=== PATIENT | female | born 1955 | race Caucasian/White ===

== ENCOUNTER 2021-09-14 19:31 | Inpatient (IN) | payer MEDICARE, MEDICAID, SELFPAY ==
[2021-09-14 21:32] VITALS: BP 133/75; PULSE 65; RESP 16; TEMP 36.1; O2SAT 96
[2021-09-14 21:49] VITALS: BP 133/75; PULSE 65; RESP 16; TEMP 36.1; O2SAT 96
--- NOTE | 2021-09-14 22:01 | W.PM.HP.N ---
Date of service: 09/14/21 Time of Service: 22:01 Assessment and Plan Assessment and plan (1) Acute pancreatitis: Status: Acute Assessment and plan: CT imaging done at [facility] was a noncontrast CT which is insufficient to disprove acute pancreatitis or sequela. Needs an US of the abdomen and likely an MRCP (patient is claustrophobic and was very anxious about this tonight). Does not have a gallbladder. NPO except ice chips and water, aggressive IVF, encourage pulmonary toilet. Check CA 19-19, procalcitonin, CRP. Trend LFTs, lipase. (2) Acute kidney injury superimposed on chronic kidney disease: Status: Acute Assessment and plan: In setting of poor PO intake, acute pancreatitis, UTI, and a number of potentially nephrotoxic medications (amiloride, meloxicam, olmesartan). Hold nephrotoxic medications. Hydrate. Treat UTI. No evidence of obstructive uropathy on CT. Monitor bladder scans. (3) UTI (urinary tract infection): Status: Acute Assessment and plan: Present on admission. Continue empiric ceftriaxone; will follow up urine C&S results from . (4) Hyponatremia: Status: Acute Assessment and plan: Hold olmesartan. Hydrate IV. Recheck in am. (5) Hyperkalemia: Status: Acute Assessment and plan: Hold olmesartan and amiloride. Lokelma and IVF tonight. Recheck in am. (6) Metabolic acidosis: Status: Acute Assessment and plan: Due to DEANNE on CKD. Lactate normal. Monitor as we are attempting to correct DEANNE. (7) DVT prophylaxis: Status: Acute Assessment and plan: SC heparin in setting of DEANNE (8) Discharge planning issues: Status: Acute Assessment and plan: Full code History of Present Illness History of Present Illness Chief Complaint: Upper abdominal pain Narrative: Ms Holley is a 66 year old female with PMHx of non-diabetic gastroparesis, Hypertension, CKD with a baseline Cr of 1.8, hypothyroidism in the past, gout, GERD, anxiety/depression, who was evaluated at the [facility] Emergency room yesterday for midpepigastric pain radiating to her back x months as well as new B lower back pain x weeks. She was found to have an DEANNE with a creatinine of 3.4, an elevated lipase (reportedly 1800), had a UA positive for a UTI, and a CT of the abdomen/pelvis which was negative for any pancreatic pathology (gallbladder was surgically absent), any evidence of nephrolithiasis or obstructive uropathy. She left the ED yesterday before the workup could be completed, per the [facility] ED provider, but returned there today after being seen by the PCP. Today, she is found to be in DEANNE with Cr of 3.17 with sodium of 127, potassium of 5.3, bicarb of 15, anion gap of 13. Her lipase is 1978. Her UA remains positive for a UTI. She was initiated on empiric ceftriaxone. Hospitalist admission at [facility] was requested as there is insufficient staffing at [facility] today and tomorrow. The patient endorses chills, but no fevers, endorses MONDRAGON, denies leg swelling, chest pain, endorses PO intake, early satiety, unitentional 50 lb weight loss in 1 year, 15 lbs in the last 2-3 months, endorses nausea, denies vomiting, endorses constipation, with last BM being 6 days ago. BMs have been brownish and not bloody, formed. Endorses the sensation of tingling when urinating, but no dysuria, endorses frequency/urgency, denies incontinence. Review of Systems All systems reviewed & are unremarkable except as noted in HPI and below PFSH All Active Problems (Updated 09/14/21 @ 23:43 by Manda Jarvis MD) Discharge planning issues (Acute) DVT prophylaxis (Acute) Metabolic acidosis (Acute) Hyperkalemia (Acute) Hyponatremia (Acute) UTI (urinary tract infection) (Acute) Acute kidney injury superimposed on chronic kidney disease (Acute) Acute pancreatitis (Acute) Medical History (Updated 09/14/21 @ 23:43 by Manda Jarvis MD) Acquired hypothyroidism (12/26/15) Body mass index (BMI) of 40.1 to 44.9 in adult CKD (chronic kidney disease) Depression Extraction of tooth needed GERD (gastroesophageal reflux disease) Gout Hypertension Left knee pain Migraine Nausea & vomiting Normocytic anemia Normocytic anemia (07/04/17) results have been forwarded to her PCP. She is planning an office visit with her PCP in the near future. Obstructive sleep apnea on CPAP Overactive bladder Rectocele longstanding. 2015 fitted with donut pessary. Pt didn't tolerate it. Urge incontinence of urine 2013 briefly treated with Oxybutynin - didn't tolerate side effects. Surgical History (Updated 09/14/21 @ 23:41 by Manda Jarvis MD) Bilateral salpingectomy with oophorectomy for B9 indications. No HRT. Cholecystectomy S/P left knee arthroscopy S/P tonsillectomy Vaginal hysterectomy for AUB. Family History (Updated 09/14/21 @ 23:41 by Manda Jarvis MD) Mother Heart disease Stroke Essential hypertension Breast cancer Father Heart disease Essential hypertension Brother Diabetes Social History (Updated 09/14/21 @ 23:42 by Manda Jarvis MD) Smoking/Tobacco Use Status: Former Tobacco Use Quit Date: 04/01/89 Pack-years: 30 Tobacco: How many years used: 15 Smoking risk assessment performed?: Yes Alcohol Intake: current Alcohol Intake frequency: a few times a month Alcohol type: hard liquor Substance use type: marijuana Details: uses marijuana twice a year In current or past relationships, have you been: other Do you feel safe at home: Yes Additional Social history: not in a relationship Meds Allergies and Home Medications Allergies Allergy/AdvReac Type Severity Reaction Status Date / Time No Known Allergies Allergy Unverified 07/04/17 10:01 Home Medications Medication Instructions Recorded Confirmed Type aspirin 81 mg chewable tablet 81 mg PO DAILY 05/03/17 09/14/21 History pantoprazole 20 mg tablet,delayed 20 mg PO DAILY 05/03/17 09/14/21 History release (Protonix) allopurinol 100 mg tablet 100 mg PO 2XD 09/14/21 09/14/21 History amiloride 5 mg tablet 5 mg PO DAILY 09/14/21 09/14/21 History bupropion HCl 150 mg 24 hr tablet, 150 mg PO DAILY 09/14/21 09/14/21 History extended release (Wellbutrin XL) meloxicam 7.5 mg tablet 7.5 mg PO DAILY 09/14/21 09/14/21 History metoclopramide HCl 10 mg tablet 10 mg PO TID & HS 09/14/21 09/14/21 History metoprolol succinate 100 mg 100 mg PO DAILY 09/14/21 09/14/21 History tablet,extended release 24 hr olmesartan 40 mg tablet 40 mg PO DAILY 09/14/21 09/14/21 History solifenacin 5 mg tablet 5 mg PO DAILY 09/14/21 09/14/21 History topiramate 50 mg tablet 50 mg PO DAILY 09/14/21 09/14/21 History Exam Narrative Exam Narrative: General: Pleasant obese female who is A&Ox3 and appears relatively comfortable in bed, mildly anxious Neurological: A&Ox3, no focal deficits Psychiatric: mildly anxious Skin: Visible skin intact; tattoos dorsum R foot HEENT: Atraumatic, normocephalic, EOMI, dry MM, clear oropharynx, no submandibular or cervical lymphadenopathy, ? goiter, no JVD Cardiovascular: RRR, no m/r/g Lungs: CTAB Gastrointestinal: soft, nontender, nondistended Genitourinary: deferred Extremities: trace edema BLEs, +1 pedal pulse L foot, trace pedal pulse R foot, B feet warm, no clubbing/cyanosis Results Imaging Additional studies: EKG: SB, HR 58, inferolateral T wave inversions (old, per documentation of [facility]) CT abdomen/pelvis (renal stone protocol) 09/13/21: No renal, ureteral or bladder calculi. No hydronephrosis or hydroureter. Small hiatal hernia. Labs Labs: CBC w/ diff: WBC 8.4 H/H 11.1/32.8 Plts 184 Segs 68.5 Lymphs 22 CMP: Na 127, K 5.3 Chloride 99, Bicarb 15, BUN 87, Cr 3.17 (baseline is 1.8) Glucose 113 Anio gap 13 GFR 15 AST 22 ALT 25 T Bili 02. Alk phos 122 Lipase 1978 Covid negative UA Hazy, 1+ bili, negative for ketones, trace blood, negative for nitrite, 3+ leuc. esterase WBC 25-50 RBC 3-5 Squamous cells few, moderate bacteria, Last Vital Signs Temp 36.1 C L 09/14/21 21:49 Pulse 65 09/14/21 21:49 Resp 16 09/14/21 21:49 BP 133/75 09/14/21 21:49 Pulse Ox 96 09/14/21 21:49
[2021-09-14 22:43] LABS: Lactate 0.9 mmol/L (0.6-1.4)
[2021-09-14] MEDS: Normal Saline Flush 10 ML SYR IVP (22:56)
[2021-09-14] MEDS: Lactated Ringers 1,000 ML 1000 ML IV (22:56)
[2021-09-14] MEDS: Sodium Zirconium Cyclosilicate 10 GM PKT PO (23:01)
[2021-09-14 23:05] VITALS: BP 109/73; PULSE 63; RESP 16; TEMP 36; O2SAT 93
[2021-09-14] MEDS: Heparin 5,000 UNITS/ML VIAL 5000 UNITS SC (23:05)
[2021-09-14] MEDS: Metoclopramide 10 MG TAB PO (23:42)
[2021-09-15] VITALS (7 sets, daily range): BP systolic 92–141; BP diastolic 58–82; PULSE 63–78; RESP 16–22; TEMP 36.2–36.7; O2SAT 93–98
[2021-09-15] MEDS: Lactated Ringers 1,000 ML 200 ML IV ×3 (00:05→12:49)
[2021-09-15] MEDS: Metoclopramide 10 MG TAB PO ×4 (05:55→23:04)
[2021-09-15] MEDS: Sodium Zirconium Cyclosilicate 10 GM PKT PO ×3 (05:56→23:03)
[2021-09-15 06:42] LABS: Abs Immature Grans 0.01 10^3/uL (0.0-0.06); Absolute Basophil Count 0.03 10^3/uL (0.0-0.2); Absolute Eosinophil Count 0.25 10^3/uL (0.0-0.7); Absolute Lymphocyte Count 2.46 10^3/uL (1.2-3.4); Absolute Monocyte Count 0.45 10^3/uL (0.1-0.8); Absolute Neutrophil Count 3.31 10^3/uL (1.2-6.7); Basophils % 0.5; Eosinophils % 3.8; HCT 27.9 % (36.0-46.0); HGB 9.4 g/dL (11.2-15.7); Immature Grans % 0.2; Lymphocytes % 37.8; MCH 30.2 pg (27.0-33.0); MCHC 33.7 % (32.0-36.0); MCV 90 fL (80-95); MPV 11.8 fL (8.0-11.0); Monocytes % 6.9; Neutrophils % 50.8; Platelet Count 182 10^3/uL (130-400); RBC 3.11 10^6/uL (3.93-5.22); RDW 13.8 % (11.7-14.6); RDW-SD 45.3 fL; WBC 6.51 10^3/uL (4.4-10.8)
[2021-09-15 07:09] LABS: ALT 14 U/L (14-59); AST 17 U/L (15-37); Albumin 2.9 g/dL (3.4-5.0); Alkaline Phosphatase 98 U/L (46-116); Bilirubin, Direct 0.1 mg/dL (0.0-0.2); Bilirubin, Total 0.2 mg/dL (0.2-1.0); Total Protein 6.2 g/dL (6.4-8.2)
[2021-09-15 07:16] LABS: Procalcitonin < 0.1 ng/mL
[2021-09-15 07:17] LABS: BUN 67 mg/dL (7-18); C-Reactive Protein 0.44 mg/dL (0.0-0.3); CREATININE 2.4 mg/dL (0.55-1.02); Calcium 9.4 mg/dL (8.5-10.1); Chloride 110 mmol/L (98-107); Creatine Kinase 91 U/L (26-192); Estimated GFR 20.14 (mL/min/1.73m2); Glucose 88 mg/dL (74-106); Lipase 1174 U/L (73-393); Magnesium 1.2 mg/dL (1.8-2.4); Sodium 140 mmol/L (136-145)
--- NOTE | 2021-09-15 08:00 | DI.US_ITS ---
APPROVED REPORT EXAM: Comprehensive 2D, Doppler, and color-flow Echocardiogram Patient Location: In-Patient Room/Bed: 212 Patient Portal Concierge: Gerri Caraballo RDCS (AE) Indications: MONDRAGON, Other Information Study Quality: Adequate Conclusion Normal left ventricular wall thickness and chamber size. Estimated ejection fraction is 60 to 65%. Wall motion is normal Normal right ventricular size and systolic function Both atria are normal in size There is no structural or hemodynamically significant valvular disease Estimated right ventricular systolic pressure is 38 mmHg Wall motion Left Ventricle The left ventricle is normal size. The left ventricular systolic function is normal. The left ventric ular ejection fraction is within the normal range. There is normal left ventricular wall thickness. T here is normal LV segmental wall motion. There is no ventricular septal defect visualized. LVEF is 60 -65%. Right Ventricle The right ventricle is normal size. The right ventricular systolic function is normal. The RVSP is 37 .9_ mmHg. Atria The left atrium size is normal. The right atrium size is normal. The interatrial septum is intact wit h no evidence for an atrial septal defect. Aortic Valve The aortic valve is normal in structure. Aortic valve is trileaflet. There is no aortic valvular stella nosis. No aortic regurgitation is present. Mitral Valve The mitral valve is normal in structure. No evidence of mitral valve stenosis. Trace mitral regurgita tion. Tricuspid Valve The tricuspid valve is normal in structure. There is no tricuspid valve stenosis. Mild tricuspid regu rgitation. Pulmonic Valve The pulmonary valve is normal in structure. There is no pulmonic valvular stenosis. Trace pulmonic re gurgitation. Great Vessels The aortic root is normal in size. The ascending aorta is normal in size. Aortic arch is normal in ca liber. IVC is normal in size and collapses >50% with inspiration. Pericardium There is no pericardial effusion. 2D Dimensions IVSD d PLAX 0.85 cm F: 0.6-1.0 LV Vol A2C d MOD 82.0 mL LVPW d PLAX 0.87 cm F: 0.6 - 1.0 LV Vol A4C d MOD 75.5 mL LVID d PLAX 4.36 cm F: 3.8 - 5.2 LA vol/ BSA A2C s A-L 25.9 mL/m2 LVDs 3.05 cm F: 2.2 - 3.5 LA vol/ BSA A4C s A-L 22.3 mL/m2 Ao Root d 2.82 cm F: 2.7 - 3.3 LA Vol/ BSA Biplane s A-L 24.3 mL/m2 RA Area A4C 9.83 cm2 LA Area A4C s MOD 16.08 cm2 RA Vol/ BSA A4C s A-L 10.3 mL/m2 LA Area A2C s MOD 17.18 cm2 Ao Asc Diam d 3.23 cm F: 2.3 - 3.1 LV EF A4C MOD 58.1 % LV EF Teichholz 57.5 % LV EF A2C MOD 60.3 % LVEF (Yanez's) 58.83 % F: 54 - 74 LV EF Biplane MOD 58.8 % LV Volume 61.15 mL F: 46 - 106 SV 46.34 mL LV Volume Index 33.78 mL/m2 F: 29 - 61 SV Index 25.61 mL/m2 LV Vol Biplane MOD 78.8 mL FS 30.00 % M-Mode TAPSE 2.00 cm (M/F) >1.7 LV Diastology MV E' medial 0.111 (>0.07 m/s) E/A Ratio 0.8 LV E/e MED 6.20 (<14) MV E Vmax 0.69 (0.4-1.3 m/s) MV E' lateral 0.121 (>0.1 m/s) MV A Vmax 0.85 (0.4-1.3 m/s) LV E/e LAT 5.70 (<14) MV E/A Ratio 0.81 MV E/E' medial 6.22 MV E/E' lateral 5.71 Aortic Valve LVOT Area 2.87 cm2 AoV Area Vmax 2.24 cm2 LVOT Vmax 1.47 m/s AoV Area/ BSA (Vmax) 1.24 cm2/m2 LVOT Mean Bert. 1.12 m/s MARISELA Mean Bert. 2.37 cm2 LVOT Peak Grad 8.6 mmHg MARISELA Mean Bert. Index 1.31 cm2/m2 LVOT Mean Grad 5.3 mmHg LVOT VTI 0.338 m LVOT Diam s 1.90 cm AoV Vmax 1.88 m/s Velocity Ratio 0.78 AoV Mean Bert. 1.35 m/s AoV Peak Grad 14.1 mmHg LVOT SV 96.93 mL AoV Mean Grad 8.1 mmHg AoV VTI 0.398 m AoV Area VTI 2.43 cm2 AoV Area/ BSA (VTI) 1.34 cm/m2 Mitral Valve MV DT 319 (160-240 msec) MV PHT 93 msec MV Area PHT 2.38 cm2 MV VTI 0.258 m MV Area VTI 3.75 (4.0-6.0 cm2) Pulmonary Valve PV Vmax 1.24 (0.5-1.5 m/s) RVOT Peak Gr. 3.25 mmHg PV Peak Grad 6.2 mmHg RVOT Mean Gr. 1.90 mmHg PV Mean Grad 3.4 mmHg RVOT VTI 0.231 m PV VTI 0.247 m RVOT Vmax 0.90 m/s Tricuspid Valve TR Peak Grad 34.9 mmHg TR Vmax 2.96 m/s RA Pressure 3.00 mmHg RVSP (TR) 37.9 mmHg
--- NOTE | 2021-09-15 08:00 | DI.MRI_ITS ---
Exam(s) MR ABDOMEN WO EXAM: MR ABDOMEN WO CLINICAL HISTORY: pancreatitis. TECHNIQUE: Multiplanar multisequence MRI was performed. COMPARISON: CT CT RENAL COLIC from 09/13/2021 FINDINGS: MR examination of the abdomen was performed according to the usual protocol with additional MRCP [place]. Examination was somewhat limited by patient motion. Note is made of a hiatal hernia. No upper abdominal adenopathy seen. Visualized abdominal aorta is of normal diameter. Small incidental left renal cysts are noted. No other focal renal pathology. No hydronephrosis. Adrenals appear normal bilaterally. Spleen is unremarkable in appearance. Liver appears normal. Gallbladder has been surgically removed. No biliary dilatation. Pancreatitis shows normal signal and there is no evidence of pancreatic mass or inflammatory process. No peripancreatic fluid collection seen. IMPRESSION: Negative upper abdominal MRI. Prior cholecystectomy noted. DATA REPOSITORY:
--- NOTE | 2021-09-15 08:00 | DI.US_ITS ---
Exam(s) US ABDOMEN EXAM: US ABDOMEN INDICATION: pancreatitis COMPARISON: US US ECHOCARDIOGRAM from 09/15/2021 TECHNIQUE: Ultrasound abdomen performed using standard protocol FINDINGS: Abdominal ultrasound was performed according to the usual protocol. The liver is normal in size and shape. No focal hepatic lesion seen. Question mildly increased hepat ic echogenicity, this could represent hepatic steatosis. Prior cholecystectomy noted. No evidence biliary dilatation. Portal venous flow is hepatopetal. Pancreas appears intact as visualized. Spleen is unremarkable in appearance with no focal lesion. Kidneys are normal in size and shape. No renal mass, hydronephrosis, or nephrolithiasis. Abdominal aorta and IVC are of normal diameter. IMPRESSION: Negative abdominal ultrasound except for a possible hepatic steatosis. Post cholecystectomy.
--- NOTE | 2021-09-15 09:03 | INITIAL_ITS ---
- If Service Date Differs Date of service: 09/15/21 Time of Service: 09:03 Care Management Initial Assess REASON FOR HOSPITALIZATION:: Acute pancreatitis PAST MEDICAL HISTORY/PAST SURGICAL HISTORY:: All Active Problems (Updated 09/14/21 @ 23:43 by Manda Jarvis MD). Discharge planning issues (Acute). DVT prophylaxis (Acute). Metabolic acidosis (Acute). Hyperkalemia (Acute). Hyponatremia (Acute). UTI (urinary tract infection) (Acute). Acute kidney injury superimposed on chronic kidney disease (Acute). Acute pancreatitis (Acute). Medical History (Updated 09/14/21 @ 23:43 by Manda Jarvis MD). Acquired hypothyroidism (12/26/15). Body mass index (BMI) of 40.1 to 44.9 in adult. CKD (chronic kidney disease). Depression. Extraction of tooth needed. GERD (gastroesophageal reflux disease). Gout. Hypertension. Left knee pain. Migraine. Nausea & vomiting. Normocytic anemia. Normocytic anemia (07/04/17). results have been forwarded to her PCP. She is planning an office visit with her PCP in the near future. Obstructive sleep apnea on CPAP. Overactive bladder. Rectocele. longstanding. 2015 fitted with donut pessary. Pt didn't tolerate it. Urge incontinence of urine. 2013 briefly treated with Oxybutynin - didn't tolerate side effects. Surgical History (Updated 09/14/21 @ 23:41 by Manda Jarvis MD). Bilateral salpingectomy with oophorectomy. for B9 indications. No HRT. Cholecystectomy. S/P left knee arthroscopy. S/P tonsillectomy. Vaginal hysterectomy. for AUB. PREVIOUS FUNCTIONAL STATUS/SOCIAL/FAMILY SUPPORTS:: Kika is , and lives in [place] with her Brother and son. She has 4 adult children who live locally and are supportive. Kika is unemployed, drives and is independent at baseline. CURRENT FUNCTIONAL STATUS:: Kika is alert, oriented, pleasant and easy to engage in conversation. She is sitting up in bed, eating lunch when CM met with her. Her diet was advanced and she is very happy and hungry. Kika is reportedly feeling much better. ADVANCE DIRECTIVES:: None, pt defers for now. Has patient been provided with info about the portal/API?: Yes Did the patient sign up for the portal?: No CODE STATUS:: Full Code INSURANCE COVERAGE / FINANCIAL ISSUES:: Medicare. Medicaid CURRENT HOME/COMMUNITY SERVICES/EQUIPMENT:: Has a cane at home, rarely uses PRIMARY CARE PHYSICIAN:: Pola Bailey POTENTIAL DISCHARGE NEEDS:: Follow up appointments. PATIENT/FAMILY EDUCATION NEEDS:: Review discharge instructions, limitations, medications and plan to follow up with community provders. ask me three. TRANSPORTATION:: Via private vehicle with family. PLAN:: Kika requires hospitalization for further medical work up and IV abx. Anticipate, Kika will discharge home via private vehicle with family when medically ready.
[2021-09-15] MEDS: buPROPion-XL 150 MG TABCR PO (09:45)
[2021-09-15] MEDS: LORazepam 2 MG/ML VIAL 1 MG IVP (11:17)
[2021-09-15] MEDS: Normal Saline Flush 10 ML SYR IVP ×2 (11:17→19:43)
[2021-09-15] MEDS: buPROPion-XL 150 MG TABCR 300 MG PO (12:36)
[2021-09-15] MEDS: Heparin 5,000 UNITS/ML VIAL 5000 UNITS SC ×2 (12:37→23:03)
[2021-09-15] MEDS: MAGNESIUM SULFATE 4 GM/100 ML BAG IVPB (12:45)
[2021-09-15 12:48] LABS: Iron 75 ug/dL (50-170); Total Iron Binding Capacity 191 ug/dL (250-450); Transferrin Sat 39 % (15-50)
--- NOTE | 2021-09-15 14:35 | CHAPLAIN ---
Kika was resting in bed when I visited. She seemed tired. She was pleasant and engaged in a short conversation. She said she has been in touch with family by phone.
--- NOTE | 2021-09-15 14:39 | PHACLINREV_ITS ---
Pharmacy Admission Review - Admission Clinical Review (Last Updated 09/14/21 @ 23:43 by Manda Jarvis MD) Discharge planning issues (Acute) DVT prophylaxis (Acute) Metabolic acidosis (Acute) Hyperkalemia (Acute) Hyponatremia (Acute) UTI (urinary tract infection) (Acute) Acute kidney injury superimposed on chronic kidney disease (Acute) Acute pancreatitis (Acute) No Known Allergies Allergy (Unverified 07/04/17 10:01) Resuscitation Status Full Code Height 5 ft Weight 85.6 kg Pancreatitis, UTI, DEANNE - Comments Comments/Follow Ups: Unexplained weight loss, ? obstruction. Pt is NPO for MRCP & pancreatitis so oral meds not given, even BP med, refused Lidocaine patch. Watch SCr, Lipase. Rocephin for UTI, cultures drawn at [facility] per MD note-they had no beds/staffing shortage to admit her. - Renal Dosing Renal Dosing: BUN 67 mg/dL (7-18) H 09/15/21 06:30 Creatinine 2.4 mg/dL (0.55-1.02) H 09/15/21 06:30 Medications needing adjustments: Reviewed (CrCl~16.33ml/min) List of meds needing interventions: Allopurinol-recommended 50mg Q.O.D (currently 100mg BID), Wellbutrin XL consider max 150mg/day (currently 450mg daily) - Anticoagulation Anticoagulation: Hgb 9.4 g/dL (11.2-15.7) L 09/15/21 06:30 Hct 27.9 % (36.0-46.0) L 09/15/21 06:30 Plt Count 182 10^3/uL (130-400) 09/15/21 06:30 Creatinine 2.4 mg/dL (0.55-1.02) H 09/15/21 06:30 DVT Prophylaxis: Reviewed Medications: Heparin - Relevant Labs Sodium 140 mmol/L (136-145) 09/15/21 06:30 Potassium 5.0 mmol/L (3.5-5.1) 09/15/21 06:30 Chloride 110 mmol/L (98-107) H 09/15/21 06:30 Magnesium 1.2 mg/dL (1.8-2.4) L 09/15/21 06:30 C-Reactive Protein 0.44 mg/dL (0.0-0.3) H 09/15/21 06:30 Electrolytes, C-Reactive P, ESR: Reviewed (Mag 4gram IV x1, Lokelma TID x 6 doses, Lipase 1174, TSH elevated 5.5) - DM Control DM Control: Glucose 88 mg/dL (74-106) 09/15/21 06:30 Insulin Dosing: N/A - BP Control BP Control: Blood Pressure 138/70 Blood Pressure 141/82 Blood Pressure 104/70 If elevated: Reviewed (Toprol not given-held for MRCP) - Qtc Review If Elevated: N/A (no ekg, pt did have an Echo today EF 60-65%) - IV to PO Switch IV Medications: Reviewed (Has IV and oral APAP) - Home Meds Home Med List reviewed: Reviewed Relevent Home Meds Not ordered & why?: Olmesartan, Meloxicam, Amiloride-held for DEANNE - Comments Comments/Follow Ups: came from [facility] ER, was treated previously with outp Bactrim DS x 7 days (started 09/13/21)
--- NOTE | 2021-09-15 16:02 | PGE_ITS ---
Date of Service Date of service: 09/15/21 Time of Service: 16:02 Assessment and Plan Assessment and plan (1) Acute pancreatitis: Status: Acute Assessment and plan: CT imaging done at [facility] was a noncontrast CT which is insufficient to disprove acute pancreatitis or sequela. Needs an US of the abdomen and likely an MRCP (patient is claustrophobic and was very anxious about this tonight). Does not have a gallbladder. NPO except ice chips and water, aggressive IVF, encourage pulmonary toilet. Check CA 19-19, procalcitonin, CRP. Trend LFTs, lipase. (2) Acute kidney injury superimposed on chronic kidney disease: Status: Acute Assessment and plan: In setting of poor PO intake, acute pancreatitis, UTI, and a number of potentially nephrotoxic medications (amiloride, meloxicam, olmesartan). Hold nephrotoxic medications. Hydrate. Treat UTI. No evidence of obstructive uropathy on CT. Monitor bladder scans. (3) UTI (urinary tract infection): Status: Acute Assessment and plan: Present on admission. Continue empiric ceftriaxone; will follow up urine C&S results from [facility]. (4) Hyponatremia: Status: Acute Assessment and plan: Hold olmesartan. Hydrate IV. Recheck in am. (5) Hyperkalemia: Status: Acute Assessment and plan: Hold olmesartan and amiloride. Lokelma and IVF tonight. Recheck in am. (6) Metabolic acidosis: Status: Acute Assessment and plan: Due to DEANNE on CKD. Lactate normal. Monitor as we are attempting to correct DEANNE. (7) DVT prophylaxis: Status: Acute Assessment and plan: SC heparin in setting of DEANNE (8) Discharge planning issues: Status: Acute Assessment and plan: Full code anticipate discharge to home tomorrow. would be agreeable to referral. discussed with Dr Huerta. Subjective Subjective Patient reports: no new complaints, feels better, tolerating liquids well, tolerating a regular diet, voiding w/o difficulty and afebrile; denies nausea or shortness of breath Exam Const General: cooperative, comfortable, no acute distress, frail appearing (older than stated age) and ill appearing chronically Nutritional Appearance: obese Orientation: alert, awake and oriented x3 HENMT Head: normal to inspection, normocephalic and atraumatic Mouth: oral mucosae normal Chest Chest: normal inspection of the chest Resp Effort & Inspection: normal respiratory effort Auscultation: clear to auscultation bilaterally Cardio Rate: regular rate Rhythm: regular rhythm GI Inspection: normal to inspection and distended Palpation: soft Auscultation: normal bowel sounds Skin General skin exam: no rashes or lesions noted Neuro General: patient alert, patient awake and patient oriented x3 Extrem General: normal to inspection and full ROM Objective Last Vital Signs Temp 36.6 C 09/15/21 15:58 Pulse 69 09/15/21 15:58 Resp 22 09/15/21 15:58 BP 109/67 09/15/21 15:58 Pulse Ox 94 09/15/21 15:58 Laboratory Results - last 24 hr 09/14/21 09/15/21 09/15/21 22:41 06:30 06:30 WBC RBC Hgb Hct MCV MCH MCHC RDW Plt Count MPV Immature Gran % Neutrophils % Lymphocytes % Monocytes % Eosinophils % Basophils % Nucleated RBC % Absolute Neutrophils Absolute Lymphocytes Absolute Monocytes Absolute Eosinophils Absolute Basophils VBG Lactate 0.9 Sodium 140 Potassium 5.0 Chloride 110 H Carbon Dioxide 16.0 L Anion Gap 14.0 H BUN 67 H Creatinine 2.4 H Estimated GFR/1.73 m2 20.14 Glucose 88 Calcium 9.4 Magnesium 1.2 L Iron TIBC Transferrin % Sat Total Bilirubin Conjugated Bilirubin AST ALT Alkaline Phosphatase Creatine Kinase 91 C-Reactive Protein 0.44 H Total Protein Albumin Lipase 1174 H Procalcitonin < 0.1 TSH 5.50 H 09/15/21 09/15/21 09/15/21 06:30 06:30 06:30 WBC 6.51 RBC 3.11 L Hgb 9.4 L Hct 27.9 L MCV 90 MCH 30.2 MCHC 33.7 RDW 13.8 Plt Count 182 MPV 11.8 H Immature Gran % 0.2 Neutrophils % 50.8 Lymphocytes % 37.8 Monocytes % 6.9 Eosinophils % 3.8 Basophils % 0.5 Nucleated RBC % 0.0 Absolute Neutrophils 3.31 Absolute Lymphocytes 2.46 Absolute Monocytes 0.45 Absolute Eosinophils 0.25 Absolute Basophils 0.03 VBG Lactate Sodium Potassium Chloride Carbon Dioxide Anion Gap BUN Creatinine Estimated GFR/1.73 m2 Glucose Calcium Magnesium Iron 75 TIBC 191 L Transferrin % Sat 39 Total Bilirubin 0.2 Conjugated Bilirubin 0.1 AST 17 ALT 14 Alkaline Phosphatase 98 Creatine Kinase C-Reactive Protein Total Protein 6.2 L Albumin 2.9 L Lipase Procalcitonin TSH
[2021-09-15] MEDS: Docusate Sodium 100 MG CAP PO (19:41)
[2021-09-15] MEDS: Normal Saline 500 ML 30 ML IV (19:42)
[2021-09-15] MEDS: Ferrous Sulfate 325 MG TAB PO (19:42)
[2021-09-16 03:10] VITALS: BP 128/72; PULSE 77; RESP 18; TEMP 36.2; O2SAT 95
[2021-09-16] MEDS: Metoclopramide 10 MG TAB PO (05:48)
[2021-09-16] MEDS: Sodium Zirconium Cyclosilicate 10 GM PKT PO (05:49)
[2021-09-16 06:55] LABS: Abs Immature Grans 0.01 10^3/uL (0.0-0.06); Absolute Basophil Count 0.03 10^3/uL (0.0-0.2); Absolute Monocyte Count 0.45 10^3/uL (0.1-0.8); Absolute Neutrophil Count 3.39 10^3/uL (1.2-6.7); Basophils % 0.5; Eosinophils % 3.4; HCT 26.6 % (36.0-46.0); HGB 9.1 g/dL (11.2-15.7); Immature Grans % 0.2; Lymphocytes % 30.6; MCH 30.7 pg (27.0-33.0); MCHC 34.2 % (32.0-36.0); MCV 90 fL (80-95); MPV 12.3 fL (8.0-11.0); Monocytes % 7.7; Neutrophils % 57.6; Platelet Count 191 10^3/uL (130-400); RBC 2.96 10^6/uL (3.93-5.22); RDW 14.3 % (11.7-14.6); RDW-SD 46.3 fL; WBC 5.88 10^3/uL (4.4-10.8)
[2021-09-16 07:09] LABS: ALT 13 U/L (14-59); AST 18 U/L (15-37); Albumin 2.8 g/dL (3.4-5.0); Alkaline Phosphatase 97 U/L (46-116); Anion Gap 12.2 mmol/L (3-11); BUN 47 mg/dL (7-18); Bilirubin, Total 0.2 mg/dL (0.2-1.0); CO2 17.8 mmol/L (21.0-32.0); CREATININE 2.1 mg/dL (0.55-1.02); Calcium 8.8 mg/dL (8.5-10.1); Calculated LDL 66 mg/dL (<100); Chloride 111 mmol/L (98-107); Cholesterol 118 mg/dL (<200); Estimated GFR 23.49 (mL/min/1.73m2); Glucose 102 mg/dL (74-106); HDL Cholesterol 35 mg/dL (40-60); Potassium 4.1 mmol/L (3.5-5.1); Sodium 141 mmol/L (136-145); Total Protein 5.9 g/dL (6.4-8.2); Triglyceride 88 mg/dL (<150)
[2021-09-16 07:38] VITALS: BP 88/56; PULSE 76; RESP 20; TEMP 37.1; O2SAT 94
[2021-09-16 07:42] VITALS: BP 114/76
[2021-09-16] MEDS: Pantoprazole 20 MG TABCR PO (08:18)
[2021-09-16] MEDS: buPROPion-XL 150 MG TABCR PO (08:18)
[2021-09-16] MEDS: Aspirin 81 MG CHEW PO (08:18)
[2021-09-16] MEDS: Topiramate 50 MG TAB PO (08:18)
[2021-09-16] MEDS: Metoprolol CR 100 MG TABCR PO (08:18)
[2021-09-16] MEDS: Allopurinol 100 MG TAB 50 MG PO (08:18)
[2021-09-16] MEDS: Ferrous Sulfate 325 MG TAB PO (08:19)
[2021-09-16] MEDS: Docusate Sodium 100 MG CAP PO (08:19)
--- NOTE | 2021-09-16 11:05 | W.PM.DS.N ---
Date of service: 09/16/21 Time of Service: 11:05 DS: Diagnosis Discharge Diagnosis (1) Acute pancreatitis: Status: Acute (2) Acute kidney injury superimposed on chronic kidney disease: Status: Acute (3) UTI (urinary tract infection): Status: Acute (4) Hyponatremia: Status: Acute (5) Hyperkalemia: Status: Acute (6) Metabolic acidosis: Status: Acute Discharge Plan Disposition Patient Disposition: HOME Condition: Stable Discharge Details Reason For Visit: Acute Pancreatitis,UTI,Acute Kidney Injury Admit Date/Time: 09/14/21 19:31 Admit Provider: Manda Jarvis Attending Provider: Manda Jarvis [facility] Course: This is a 66 year old female with history of non-diabetic gastroparesis, hypertension,? CKD with a baseline Cr of 1.8, hypothyroidism in the past, gout,? GERD, anxiety/depression, who presented to [facility] Emergency room for evaluation of midpepigastric pain radiating to her back x months as well as new B lower back pain x weeks. She was found to have an acute kidney injury with a creatinine of 3.4,? an elevated lipase (reportedly 1800), had a urine suspicious for a UTI, and a CT of the abdomen/pelvis which was negative for any pancreatic pathology (gallbladder was surgically absent), any evidence of nephrolithiasis or obstructive uropathy. She left the ED before the workup could be completed, per the [facility] ED provider, but returned after being seen by the PCP. Repeat labs showed improved creatinine to 3.17 but? sodium of 127, potassium of 5.3, bicarb of 15, anion gap of 13. Her lipase was 1978. Her UA remains positive for a UTI, she had just started bactrim as prescribed. She was initiated on empiric ceftriaxone and hospitalist services here asked to admit as there was insufficient staffing at [facility]. She was transported by ground EMS with out incident. She remained NPO overnight for ultrasound and MRCP, both unremarkable. Her kidney function improved to a creatinine of 2.1, sodium 141, potassium of 4.1. triglycerides 88. She is now pain free, has remained hemodynamically stable with no new complaints. she is tolerating a regular diet. she is voiding with no further symptoms of frequency or urgency. her urine culture from [facility] showed no growth at 24 hours and final report < 10k gram positive cocci. She received 2 doses of IV ceftriaxone and will not require any further doses at discharge. She is being discharged to home with no new services. she should follow up outpatient with pcp. no medication changes at discharge. discussed with Dr Mistry Home Meds and New Rx's Prescriptions: Continued pantoprazole [Protonix] 20 MG tablet,delayed release (DR/EC) 20 mg PO DAILY aspirin 81 MG tablet,chewable 81 mg PO DAILY olmesartan 40 mg tablet 40 mg PO DAILY Label Comments: TAKE ONE TABLET BY MOUTH EVERY DAY bupropion HCl [Wellbutrin XL] 150 mg tablet extended release 24 hr 450 mg PO DAILY Label Comments: TAKE THREE TABLETS BY MOUTH EVERY DAY allopurinol 100 mg tablet 200 mg PO BID Label Comments: TAKE 2 TABLETS BY MOUTH TWICE DAILY metoprolol succinate 100 mg tablet extended release 24 hr 100 mg PO DAILY Label Comments: TAKE ONE TABLET BY MOUTH EVERY DAY metoclopramide HCl 10 mg tablet 10 mg PO TID & HS Label Comments: TAKE ONE TABLET BY MOUTH TWICE A DAY solifenacin 5 mg tablet 5 mg PO DAILY Label Comments: TAKE ONE TABLET BY MOUTH EVERY DAY meloxicam 7.5 mg tablet 15 mg PO DAILY Label Comments: TAKE TWO TABLETS BY MOUTH EVERY DAY topiramate 50 mg tablet 50 mg PO DAILY Label Comments: TAKE ONE TABLET BY MOUTH EVERY DAY amiloride 5 mg tablet 5 mg PO DAILY Label Comments: TAKE ONE TABLET BY MOUTH EVERY DAY Discharge Instructions Instructions: Pancreatitis (DC), Acute Kidney Injury (DC) Additional Instructions: The cause of your pancreatitis was mostly likely Drug-induced pancreatitis???There are a number of drugs used to treat medical conditions can trigger acute pancreatitis and.we think yours was caused by the bactrim that you were recently prescribed as there was not other explanation found on your work up. Please keep that in mind if ever prescribed again in the future as an adverse reaction. There is also unexplained pancreatitis???Where no underlying cause can be identified in about 20 percent of people with acute pancreatitis. This condition is called idiopathic pancreatitis. Some proportion of this group will experience additional attacks over time. Your kidney functions are improving after IV hydration. Please follow up with your primary care provider for further monitoring and evaluation. You should stop bactrim for treatment of your urinary tract infection, your urine culture showed insignificant growth. There are no further antibiotics indicated. Stand Alone Forms: Nursing Discharge Form Referrals: Pola Bailey [Primary Care Provider] - (Please call Saturday for an Appointment ) Activity:: Activity as Tolerated Equipment/Supplies:: No Equipment Needed Diet:: As Tolerated Discharge Orders Discharge Orders: Discharge Order (Routine); Ordered 09/16/21 Ordered By: Aleja Delacruz DS: Summary Time Spent with Patient providing and/or coordinating discharge services: Less than 30 minutes Status at Discharge Functional status at discharge: independent ambulation Overall status at discharge: patient is progressing back to baseline Mental Status: mental status grossly normal Speech and Movement: speech and movement normal Mood: congruent mood Affect: normal affect Exam Const General: cooperative, comfortable and no acute distress Nutritional Appearance: obese Orientation: alert, awake and oriented x3 HENMT Head: normal to inspection, normocephalic and atraumatic Mouth: oral mucosae normal Chest Chest: normal inspection of the chest Resp Effort & Inspection: normal respiratory effort Auscultation: clear to auscultation bilaterally Cardio Rate: regular rate Rhythm: regular rhythm GI Inspection: normal to inspection Palpation: soft, no guarding and nontender Auscultation: normal bowel sounds Skin General skin exam: no rashes or lesions noted Neuro General: patient alert, patient awake and patient oriented x3 Extrem General: normal to inspection and full ROM Psych Mental Status: mental status grossly normal Speech and Movement: speech and movement normal Mood: congruent mood Affect: normal affect DS: Data Vitals/I&O Vitals and I&O: Vital Signs Temperature 37.1 C 09/16/21 07:38 Temperature Source Tympanic 09/16/21 07:38 Pulse 76 09/16/21 07:38 Pulse Rhythm Regular 09/16/21 08:33 Respiratory Rate 20 09/16/21 07:38 Respiratory Effort Non-Labored 09/16/21 08:33 Respiratory Depth Normal 09/16/21 08:33 Respiratory Pattern Normal 09/16/21 08:33 Blood Pressure 114/76 09/16/21 07:42 Pulse Oximetry 94 09/16/21 07:38 Oxygen Delivery Method Room Air 09/16/21 07:38 Oxygen Flow Rate 0 09/16/21 07:38 Pain Level 3 09/16/21 07:38 Comment 09/16/21 07:42 Intake & Output 09/15/21 09/15/21 09/16/21 11:59 23:59 11:59 Intake Total 2846.667 / 3929.167 1082.5 / 3929.167 Output Total 3400 / 3400 500 / 500 Balance -553.333 / 617.585 2842.5 / 529.167 -500 / -500 Weight 85.6 kg Intake: IV 2846.667 / 3929.167 1082.5 / 3929.167 Output: Urine 3400 / 3400 500 / 500 Other: Urine Color Yellow Light Martha Urine Appearance Clear Clear Urine Odor None Comment voided in the toilet missed the hat patient independently voiding in the toilet Voiding Methods Toilet Toilet Data Completed and Pending Completed studies during hospitalization [Text1]: Comprehensive 2D, Doppler, and color-flow Echocardiogram abdominal ultrasound abdominal MRI Labs on day of discharge: Labs from last 24 hours 09/16/21 09/16/21 09/15/21 06:35 06:35 06:30 WBC 5.88 RBC 2.96 L Hgb 9.1 L Hct 26.6 L MCV 90 MCH 30.7 MCHC 34.2 RDW 14.3 Plt Count 191 MPV 12.3 H Immature Gran % 0.2 Neutrophils % 57.6 Lymphocytes % 30.6 Monocytes % 7.7 Eosinophils % 3.4 Basophils % 0.5 Nucleated RBC % 0.0 Absolute Neutrophils 3.39 Absolute Lymphocytes 1.80 Absolute Monocytes 0.45 Absolute Eosinophils 0.20 Absolute Basophils 0.03 Sodium 141 Potassium 4.1 Chloride 111 H Carbon Dioxide 17.8 L Anion Gap 12.2 H BUN 47 H Creatinine 2.1 H Estimated GFR/1.73 m2 23.49 Glucose 102 Calcium 8.8 Magnesium 2.0 Iron 75 TIBC 191 L Transferrin % Sat 39 Total Bilirubin 0.2 AST 18 ALT 13 L Alkaline Phosphatase 97 Total Protein 5.9 L Albumin 2.8 L Triglycerides 88 Total Cholesterol 118 LDL Cholesterol, Calc 66 HDL Cholesterol 35 L Imaging MRI - abdomen: Radiologist's impression: Exam(s) MR ABDOMEN WO EXAM: ? MR ABDOMEN WO CLINICAL HISTORY:? pancreatitis. TECHNIQUE:? Multiplanar multisequence MRI was performed. COMPARISON:? CT CT RENAL COLIC from 09/13/2021 FINDINGS: ?MR examination of the abdomen was performed according to the usual protocol with additional MRCP imaging.? Examination was somewhat limited by patient motion. Note is made of a hiatal hernia. No upper abdominal adenopathy seen.? Visualized abdominal aorta is of normal diameter. Small incidental left renal cysts are noted.? No other focal renal pathology.? No hydronephrosis. Adrenals appear normal bilaterally. Spleen is unremarkable in appearance. Liver appears normal.? Gallbladder has been surgically removed.? No biliary dilatation. Pancreatitis shows normal signal and there is no evidence of pancreatic mass or inflammatory process.? No peripancreatic fluid collection seen. IMPRESSION: Negative upper abdominal MRI.? Prior cholecystectomy noted. Lab and Radiology Reports: Laboratory Results WBC 5.88 10^3/uL (4.4-10.8) 09/16/21 06:35 RBC 2.96 10^6/uL (3.93-5.22) L 09/16/21 06:35 Hgb 9.1 g/dL (11.2-15.7) L 09/16/21 06:35 Hct 26.6 % (36.0-46.0) L 09/16/21 06:35 MCV 90 fL (80-95) 09/16/21 06:35 MCH 30.7 pg (27.0-33.0) 09/16/21 06:35 MCHC 34.2 % (32.0-36.0) 09/16/21 06:35 RDW 14.3 % (11.7-14.6) 09/16/21 06:35 Plt Count 191 10^3/uL (130-400) 09/16/21 06:35 MPV 12.3 fL (8.0-11.0) H 09/16/21 06:35 Immature Gran % 0.2 09/16/21 06:35 Neutrophils % 57.6 09/16/21 06:35 Lymphocytes % 30.6 09/16/21 06:35 Monocytes % 7.7 09/16/21 06:35 Eosinophils % 3.4 09/16/21 06:35 Basophils % 0.5 09/16/21 06:35 Nucleated RBC % 0.0 % (0.0-0.3) 09/16/21 06:35 Absolute Neutrophils 3.39 10^3/uL (1.2-6.7) 09/16/21 06:35 Absolute Lymphocytes 1.80 10^3/uL (1.2-3.4) 09/16/21 06:35 Absolute Monocytes 0.45 10^3/uL (0.1-0.8) 09/16/21 06:35 Absolute Eosinophils 0.20 10^3/uL (0.0-0.7) 09/16/21 06:35 Absolute Basophils 0.03 10^3/uL (0.0-0.2) 09/16/21 06:35 VBG Lactate 0.9 mmol/L (0.6-1.4) 09/14/21 22:41 Sodium 141 mmol/L (136-145) 09/16/21 06:35 Potassium 4.1 mmol/L (3.5-5.1) 09/16/21 06:35 Chloride 111 mmol/L (98-107) H 09/16/21 06:35 Carbon Dioxide 17.8 mmol/L (21.0-32.0) L 09/16/21 06:35 Anion Gap 12.2 mmol/L (3-11) H 09/16/21 06:35 BUN 47 mg/dL (7-18) H 09/16/21 06:35 Creatinine 2.1 mg/dL (0.55-1.02) H 09/16/21 06:35 Estimated GFR/1.73 m2 23.49 (mL/min/1.73m2) 09/16/21 06:35 Glucose 102 mg/dL (74-106) 09/16/21 06:35 Calcium 8.8 mg/dL (8.5-10.1) 09/16/21 06:35 Magnesium 2.0 mg/dL (1.8-2.4) 09/16/21 06:35 Iron 75 ug/dL (50-170) 09/15/21 06:30 TIBC 191 ug/dL (250-450) L 09/15/21 06:30 Transferrin % Sat 39 % (15-50) 09/15/21 06:30 Total Bilirubin 0.2 mg/dL (0.2-1.0) 09/16/21 06:35 Conjugated Bilirubin 0.1 mg/dL (0.0-0.2) 09/15/21 06:30 AST 18 U/L (15-37) 09/16/21 06:35 ALT 13 U/L (14-59) L 09/16/21 06:35 Alkaline Phosphatase 97 U/L (46-116) 09/16/21 06:35 Creatine Kinase 91 U/L (26-192) 09/15/21 06:30 C-Reactive Protein 0.44 mg/dL (0.0-0.3) H 09/15/21 06:30 Total Protein 5.9 g/dL (6.4-8.2) L 09/16/21 06:35 Albumin 2.8 g/dL (3.4-5.0) L 09/16/21 06:35 Triglycerides 88 mg/dL (<150) 09/16/21 06:35 Total Cholesterol 118 mg/dL (<200) 09/16/21 06:35 LDL Cholesterol, Calc 66 mg/dL (<100) 09/16/21 06:35 HDL Cholesterol 35 mg/dL (40-60) L 09/16/21 06:35 Lipase 1174 U/L (73-393) H 09/15/21 06:30 Procalcitonin < 0.1 ng/mL 09/15/21 06:30 TSH 5.50 uIU/mL (0.36-3.74) H 09/15/21 06:30 US - abdomen: Radiologist's impression: Exam(s) US ABDOMEN EXAM:? US ABDOMEN INDICATION:? pancreatitis COMPARISON:? US US ECHOCARDIOGRAM from 09/15/2021 TECHNIQUE:? Ultrasound abdomen performed using standard protocol FINDINGS: Abdominal ultrasound was performed according to the usual protocol. The liver is normal in size and shape. No focal hepatic lesion seen.? Question mildly increased hepatic echogenicity, this could represent hepatic steatosis. Prior cholecystectomy noted.? No evidence biliary dilatation. Portal venous flow is hepatopetal. Pancreas appears intact as visualized. Spleen is unremarkable in appearance with no focal lesion. Kidneys are normal in size and shape. No renal mass, hydronephrosis, or nephrolithiasis. Abdominal aorta and IVC are of normal diameter. IMPRESSION: Negative abdominal ultrasound except for a possible hepatic steatosis.? Post cholecystectomy. Lab and Radiology Reports: Laboratory Results WBC 5.88 10^3/uL (4.4-10.8) 09/16/21 06:35 RBC 2.96 10^6/uL (3.93-5.22) L 09/16/21 06:35 Hgb 9.1 g/dL (11.2-15.7) L 09/16/21 06:35 Hct 26.6 % (36.0-46.0) L 09/16/21 06:35 MCV 90 fL (80-95) 09/16/21 06:35 MCH 30.7 pg (27.0-33.0) 09/16/21 06:35 MCHC 34.2 % (32.0-36.0) 09/16/21 06:35 RDW 14.3 % (11.7-14.6) 09/16/21 06:35 Plt Count 191 10^3/uL (130-400) 09/16/21 06:35 MPV 12.3 fL (8.0-11.0) H 09/16/21 06:35 Immature Gran % 0.2 09/16/21 06:35 Neutrophils % 57.6 09/16/21 06:35 Lymphocytes % 30.6 09/16/21 06:35 Monocytes % 7.7 09/16/21 06:35 Eosinophils % 3.4 09/16/21 06:35 Basophils % 0.5 09/16/21 06:35 Nucleated RBC % 0.0 % (0.0-0.3) 09/16/21 06:35 Absolute Neutrophils 3.39 10^3/uL (1.2-6.7) 09/16/21 06:35 Absolute Lymphocytes 1.80 10^3/uL (1.2-3.4) 09/16/21 06:35 Absolute Monocytes 0.45 10^3/uL (0.1-0.8) 09/16/21 06:35 Absolute Eosinophils 0.20 10^3/uL (0.0-0.7) 09/16/21 06:35 Absolute Basophils 0.03 10^3/uL (0.0-0.2) 09/16/21 06:35 VBG Lactate 0.9 mmol/L (0.6-1.4) 09/14/21 22:41 Sodium 141 mmol/L (136-145) 09/16/21 06:35 Potassium 4.1 mmol/L (3.5-5.1) 09/16/21 06:35 Chloride 111 mmol/L (98-107) H 09/16/21 06:35 Carbon Dioxide 17.8 mmol/L (21.0-32.0) L 09/16/21 06:35 Anion Gap 12.2 mmol/L (3-11) H 09/16/21 06:35 BUN 47 mg/dL (7-18) H 09/16/21 06:35 Creatinine 2.1 mg/dL (0.55-1.02) H 09/16/21 06:35 Estimated GFR/1.73 m2 23.49 (mL/min/1.73m2) 09/16/21 06:35 Glucose 102 mg/dL (74-106) 09/16/21 06:35 Calcium 8.8 mg/dL (8.5-10.1) 09/16/21 06:35 Magnesium 2.0 mg/dL (1.8-2.4) 09/16/21 06:35 Iron 75 ug/dL (50-170) 09/15/21 06:30 TIBC 191 ug/dL (250-450) L 09/15/21 06:30 Transferrin % Sat 39 % (15-50) 09/15/21 06:30 Total Bilirubin 0.2 mg/dL (0.2-1.0) 09/16/21 06:35 Conjugated Bilirubin 0.1 mg/dL (0.0-0.2) 09/15/21 06:30 AST 18 U/L (15-37) 09/16/21 06:35 ALT 13 U/L (14-59) L 09/16/21 06:35 Alkaline Phosphatase 97 U/L (46-116) 09/16/21 06:35 Creatine Kinase 91 U/L (26-192) 09/15/21 06:30 C-Reactive Protein 0.44 mg/dL (0.0-0.3) H 09/15/21 06:30 Total Protein 5.9 g/dL (6.4-8.2) L 09/16/21 06:35 Albumin 2.8 g/dL (3.4-5.0) L 09/16/21 06:35 Triglycerides 88 mg/dL (<150) 09/16/21 06:35 Total Cholesterol 118 mg/dL (<200) 09/16/21 06:35 LDL Cholesterol, Calc 66 mg/dL (<100) 09/16/21 06:35 HDL Cholesterol 35 mg/dL (40-60) L 09/16/21 06:35 Lipase 1174 U/L (73-393) H 09/15/21 06:30 Procalcitonin < 0.1 ng/mL 09/15/21 06:30 TSH 5.50 uIU/mL (0.36-3.74) H 09/15/21 06:30 Additional Comments Additional comments: EXAM: Comprehensive 2D, Doppler, and color-flow Echocardiogram Patient Location: In-Patient Room/Bed:[facility] Shank Maker: Gerri Caraballo RDCS (AE) Indications: MONDARGON, Other Information Study Quality: Adequate Conclusion Normal left ventricular wall thickness and chamber size.? Estimated ejection fraction is 60 to 65%.? Wall motion is normal Normal right ventricular size and systolic function Both atria are normal in size There is no structural or hemodynamically significant valvular disease Estimated right ventricular systolic pressure is 38 mmHg Wall motion Left Ventricle The left ventricle is normal size. The left ventricular systolic function is normal. The left ventricular ejection fraction is within the normal range. There is normal left ventricular wall thickness. There is normal LV segmental wall motion. There is no ventricular septal defect visualized. LVEF is 60-65%. Right Ventricle The right ventricle is normal size. The right ventricular systolic function is normal. The RVSP is 37.9_ mmHg. Atria The left atrium size is normal. The right atrium size is normal. The interatrial septum is intact with no evidence for an atrial septal defect. Aortic Valve The aortic valve is normal in structure.? Aortic valve is trileaflet. There is no aortic valvular stenosis. No aortic regurgitation is present. Mitral Valve The mitral valve is normal in structure. No evidence of mitral valve stenosis. Trace mitral regurgitation. Tricuspid Valve The tricuspid valve is normal in structure. There is no tricuspid valve stenosis. Mild tricuspid regurgitation. Pulmonic Valve The pulmonary valve is normal in structure. There is no pulmonic valvular stenosis. Trace pulmonic regurgitation. Great Vessels The aortic root is normal in size. The ascending aorta is normal in size. Aortic arch is normal in caliber. IVC is normal in size and collapses >50% with inspiration. Pericardium There is no pericardial effusion. PFSH All Active Problems (Updated 09/14/21 @ 23:43 by Manda Jarvis MD) Discharge planning issues (Acute) DVT prophylaxis (Acute) Metabolic acidosis (Acute) Hyperkalemia (Acute) Hyponatremia (Acute) UTI (urinary tract infection) (Acute) Acute kidney injury superimposed on chronic kidney disease (Acute) Acute pancreatitis (Acute) Medical History (Updated 09/14/21 @ 23:43 by Manda Jarvis MD) Acquired hypothyroidism (12/26/15) Body mass index (BMI) of 40.1 to 44.9 in adult CKD (chronic kidney disease) Depression Extraction of tooth needed GERD (gastroesophageal reflux disease) Gout Hypertension Left knee pain Migraine Nausea & vomiting Normocytic anemia Normocytic anemia (07/04/17) results have been forwarded to her PCP. She is planning an office visit with her PCP in the near future. Obstructive sleep apnea on CPAP Overactive bladder Rectocele longstanding. 2015 fitted with donut pessary. Pt didn't tolerate it. Urge incontinence of urine 2013 briefly treated with Oxybutynin - didn't tolerate side effects. Surgical History (Updated 09/14/21 @ 23:41 by Manda Jarvis MD) Bilateral salpingectomy with oophorectomy for B9 indications. No HRT. Cholecystectomy S/P left knee arthroscopy S/P tonsillectomy Vaginal hysterectomy for AUB. Family History (Updated 09/14/21 @ 23:41 by Manda Jarvis MD) Mother Heart disease Stroke Essential hypertension Breast cancer Father Heart disease Essential hypertension Brother Diabetes Social History (Updated 09/14/21 @ 23:42 by Manda Jarvis MD) Smoking/Tobacco Use Status: Former Tobacco Use Quit Date: 04/01/89 Pack-years: 30 Tobacco: How many years used: 15 Smoking risk assessment performed?: Yes Alcohol Intake: current Alcohol Intake frequency: a few times a month Alcohol type: hard liquor Substance use type: marijuana Details: uses marijuana twice a year In current or past relationships, have you been: other Do you feel safe at home: Yes Additional Social history: not in a relationship
[2021-09-16 11:12] VITALS: BP 97/66; PULSE 70; RESP 19; TEMP 36.4; O2SAT 94
--- NOTE | 2021-09-16 12:35 | PDOC.CMDIS ---
- If Service Date Differs Date of service: 09/16/21 Time of Service: 12:35 LACE Index Scoring Tool - Questions: Length of Stay (in days): 2 Acuity (Admit via E.D.?): No E.D. Visits: 0 - Answers: Total Score: 2 Risk of Readmission: Low Risk Care Management Discharge Reason for Hospitalization: Acute pancreatitis Discharge Plan: Kika returned home today with no new services. Her daughter drove her home via private vehicle. She will follow up with her PCP and discharge plan of care. She is happy to be going home, and stated that she does not feel that she requires additional services at this time. Patient/Family Education Needs: Review discharge instructions and limitations, discussion of self care needs including ask me three.
[2021-09-18 10:02] LABS: CA 19-9 20 U/mL (<35)
== END 2021-09-16 13:24 | disposition home or self-care (01) | DRG 439 ==
PROVIDERS: Family Medicine; Nurse Practitioner Acute Care; Admitting Provider Internal Medicine; PCP Family Medicine; Visit Provider Internal Medicine
DX: K85.90 Acute pancreatitis without necrosis or infection, unspecified (principal); N17.9 Acute kidney failure, unspecified; N39.0 Urinary tract infection, site not specified; E87.1 Hypo-osmolality and hyponatremia; E87.2 Acidosis; N18.9 Chronic kidney disease, unspecified; E87.5 Hyperkalemia; K31.84 Gastroparesis; I10 Essential (primary) hypertension; E03.9 Hypothyroidism, unspecified; M10.9 Gout, unspecified; K21.9 Gastro-esophageal reflux disease without esophagitis; F41.8 Other specified anxiety disorders; G47.33 Obstructive sleep apnea (adult) (pediatric); D64.9 Anemia, unspecified; N32.81 Overactive bladder; Z87.891 Personal history of nicotine dependence
CPT/HCPCS: 36415; 80048; 80053; 80061; 80076; 82550; 83690; 84145; 85027; 93306; 74181; 76700; 83540; 83550; 83605; 83735; 84443; 85025; 86140; 86301; 99223; 99233; 99238; J0696; J1644; J2060; J3475

== ENCOUNTER → 2024-10-13 12:57 | Outpatient (BNVA) | payer MEDICARE, SELFPAY | PROVIDERS: PCP Family Medicine; Referring Provider Family Medicine; Visit Provider Psychiatry & Neurology Neurology | DX: R26.89 Other abnormalities of gait and mobility (principal); G24.09 Other drug induced dystonia; T50.905A Adverse effect of unspecified drugs, medicaments and biological substances, initial encounter; G62.9 Polyneuropathy, unspecified; I12.9 Hypertensive chronic kidney disease with stage 1 through stage 4 chronic kidney disease, or unspecified chronic kidney disease; N18.9 Chronic kidney disease, unspecified | CPT/HCPCS: 99205 ==

== ENCOUNTER → 2025-01-11 12:41 | Outpatient (BNVA) | payer MEDICARE, SELFPAY | PROVIDERS: PCP Family Medicine; Referring Provider Family Medicine; Visit Provider Psychiatry & Neurology Neurology | DX: R26.89 Other abnormalities of gait and mobility (principal); G24.09 Other drug induced dystonia; T50.905A Adverse effect of unspecified drugs, medicaments and biological substances, initial encounter; G62.9 Polyneuropathy, unspecified; I12.9 Hypertensive chronic kidney disease with stage 1 through stage 4 chronic kidney disease, or unspecified chronic kidney disease; N18.9 Chronic kidney disease, unspecified | CPT/HCPCS: 99214 ==